=== PATIENT | male | born 1965 | race African-American/Black ===

== ENCOUNTER 2020-08-02 09:12 | Emergency (ER) | payer MEDICAID ==
[~2020-08-02] VITALS: Ht 180.3 cm; Wt 87.0 kg
[2020-08-02] MEDS ORDERED: ACETAMINOPHEN 325MG TABLET PO ONE (09:45)
[2020-08-02 10:59] VITALS: BP 148/72
== END 2020-08-02 11:00 | disposition home or self-care (01) ==
LOC: ER 09:12
DX: S09.8XXA Other specified injuries of head, initial encounter (principal); Y04.0XXA Assault by unarmed brawl or fight, initial encounter; Y93.89 Activity, other specified; Y92.89 Other specified places as the place of occurrence of the external cause; E11.9 Type 2 diabetes mellitus without complications; R03.0 Elevated blood-pressure reading, without diagnosis of hypertension
CPT/HCPCS: 70100; 99283